=== PATIENT | male | born 1965 | race Caucasian/White ===

== ENCOUNTER 2017-12-07 20:17 | Emergency (ER) | payer OTHER ==
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
== END 2017-12-07 21:28 | disposition home or self-care (01) ==
LOC: ER 20:17
DX: Z13.9 Encounter for screening, unspecified (principal); V49.59XA Passenger injured in collision with other motor vehicles in traffic accident, initial encounter; F20.9 Schizophrenia, unspecified; Z88.8 Allergy status to other drugs, medicaments and biological substances; Z91.09 Other allergy status, other than to drugs and biological substances
CPT/HCPCS: 99281

== ENCOUNTER 2018-08-04 11:56 | Emergency (ER) | payer OTHER ==
[2018-08-04] MEDS ORDERED: ONDANSETRON 4 MG/2 ML VIAL ONE (12:24)
[2018-08-04 12:33] LABS: Absolute Monocytes 0.5 K/uL (0.1-1.3); Absolute Neutrophil 3.3 K/uL (1.8-8.0); Basophils % 0.9 % (0-1.3); Eosinophils % 1.7 % (0-4.4); Hematocrit 41.9 % (39.6-49.0); Lymphocytes % 20.7 % (15.3-44.8); Monocytes % 9.3 % (3.3-12.3); RBC Red Blood Cell Count 4.64 M/uL (4.33-5.43)
[2018-08-04 13:12] LABS: Albumin 3.7 g/dL (3.4-5.0); Bilirubin Direct 0.1 mg/dL (0-0.2); Bilirubin Total 0.4 mg/dL (0.2-1.0); Potassium 4.1 mmol/L (3.5-5.1); Protein, Total 6.8 g/dL (6.4-8.2)
--- NOTE | 2018-08-04 15:32 | RAD REPORT ---
EXAM DESCRIPTION: CT - Abdomen Pelvis W Contrast - 08/04/2018 3:15 pm CLINICAL HISTORY: Abdominal pain. Constipation COMPARISON: 2013 TECHNIQUE: Computed axial tomography of the abdomen and pelvis was obtained. 100 cc Isovue-300 is ad ministered intravenously. Oral contrast was given. All CT scans are performed using dose optimization technique as appropriate and may include automated exposure control or mA/KV adjustment according to patient size. FINDINGS: The liver, spleen, pancreas, and adrenals appear unremarkable. A horseshoe kidney is present The rectum is distended with stool measuring 8.6 centimeters. A moderate amount of stool is present t hroughout the colon. There is no evidence of diverticulitis IMPRESSION: Moderate amount stool within the colon. Rectal distention with stool
[2018-08-04] MEDS ORDERED: FLEET ENEMA ADULT PR ONE (15:56)
--- NOTE | 2018-08-04 17:47 | ER ---
Nurse's Notes [facility] Name: Demar Faith Age: 53 yrs Sex: Male : 1965 Arrival Date: 08/04/2018 Time: 11:59 Bed 3 Private MD: Diagnosis: Constipation, unspecified;Fecal impaction Presentation: 08/04 12:00 Presenting complaint: EMS states: [employer] Molder reports he has been constipated for a few hb days and today he vomited x 1 what appeared to be stool. Denies pain. Afebrile, VSS, BGL 103. Transition of care: patient was not received from another setting of care. Onset of symptoms was August 04, 2018. Risk Assessment: Do you want to hurt yourself or someone else? Patient reports no desire to harm self or others. Care prior to arrival: IV initiated. 20 GA, in the left antecubital area. 12:00 Method Of Arrival: EMS: [facility] hb 12:00 Acuity: BRENT 3 hb 12:15 Initial Sepsis Screen: Does the patient meet any 2 criteria? No. Patient's initial hb sepsis screen is negative. Does the patient have a suspected source of infection? No. Patient's initial sepsis screen is negative. Historical: - Allergies: 12:04 Klonopin; hb 12:04 Loxitane; hb 12:04 Mellaril; hb 12:04 NAVANE; hb 12:04 POISION MARCELLO; hb - Home Meds: 12:04 amlodipine oral [Active]; bisacodyl 5 mg Oral TbEC once daily [Active]; metoprolol hb tartrate 25 mg Oral tab 1 tab once daily [Active]; Nizoral Topical [Active]; Seroquel 100 mg oral tab nightly [Active]; Wellbutrin 300 mg oral tab nightly [Active]; Xarelto 20 mg Oral tab 1 tab once daily [Active]; benztropine 1 mg Oral tab 1 tab 2 times per day [Active]; - PMHx: 12:04 Depression; HYPERHYROSIS; HYPERTHYROID; Schizophrenia; IDD; hb - Immunization history:: Adult Immunizations up to date. - Social history:: Smoking status: Patient/guardian denies using tobacco. - Ebola Screening: : No symptoms or risks identified at this time. - Family history:: not pertinent. - Hospitalizations: : No recent hospitalization is reported. Screenin:05 Abuse screen: Denies threats or abuse. Denies injuries from another. Nutritional hb screening: No deficits noted. Tuberculosis screening: No symptoms or risk factors identified. Fall Risk Total May Fall Scale indicates Low Risk Score (25-44 pts). Fall prevention measures have been instituted. Side Rails Up X 2 Frequent Obs/Assesments occuring Family Present and informed to notify staff if they need to leave bedside As available Patient and Family Educated on Fall Prevention Program and strategies. Assessment: 12:05 General: Appears in no apparent distress. Behavior is calm, cooperative. Pain: Denies hb pain. Neuro: Level of Consciousness is awake, alert, obeys commands, Oriented to person, place, situation. Cardiovascular: Capillary refill < 3 seconds Patient's skin is warm and dry. Respiratory: Airway is patent Respiratory effort is even, unlabored, Respiratory pattern is regular, symmetrical, Breath sounds are clear bilaterally. GI: Abdomen is non-distended, Bowel sounds present X 4 quads. Abd is soft and non tender X 4 quads. Patient currently denies pain. : No signs and/or symptoms were reported regarding the genitourinary system. EENT: No signs and/or symptoms were reported regarding the EENT system. Derm: Skin is intact, is healthy with good turgor. Musculoskeletal: No signs and/or symptoms reported regarding the musculoskeletal system. 13:00 Reassessment: Patient appears in no apparent distress at this time. No changes from hb previously documented assessment. Patient and/or family updated on plan of care and expected duration. Pain level reassessed. 14:00 Reassessment: Patient appears in no apparent distress at this time. No changes from hb previously documented assessment. Patient and/or family updated on plan of care and expected duration. Pain level reassessed. 15:00 Reassessment: Patient appears in no apparent distress at this time. No changes from hb previously documented assessment. Patient and/or family updated on plan of care and expected duration. Pain level reassessed. 15:48 Reassessment: Spoke with caregiver, pt normally has difficulty going to bathroom on hb command, defecates on the floor most days, recommends holding enema until other daycare teacher arrives to assist. Dr. Segundo notified. 16:00 Reassessment: Patient appears in no apparent distress at this time. No changes from previously documented assessment. Patient and/or family updated on plan of care and expected duration. Pain level reassessed. 17:00 Reassessment: Patient appears in no apparent distress at this time. No changes from previously documented assessment. Patient and/or family updated on plan of care and expected duration. Pain level reassessed. 17:35 Reassessment: Pt had large soft BM. Pt cleaned of incontinence and redressed in clean hospital gown and socks. Room cleaned. Dr. Segundo notified, Discharge pending. [employer] M[employer] at bedside. Vital Signs: 11:59 BP 110 / 89; Pulse 81; Resp 16; Temp 98; Pulse Ox 99% on R/A; Pain 0/10; hb 13:00 BP 105 / 76; Pulse 78; Resp 16; Pulse Ox 99% on R/A; Pain 0/10; hb 14:00 BP 119 / 86; Pulse 84; Resp 15; Pulse Ox 100% on R/A; hb 15:00 BP 118 / 83; Pulse 87; Resp 16; Pulse Ox 99% on R/A; hb 16:00 BP 119 / 86; Pulse 83; Resp 16; Pulse Ox 98% on R/A; hb ED Course: 11:59 Patient arrived in ED. hb 12:01 Triage completed. hb 12:02 Sameer Segundo MD is Attending Physician. rn 12:05 Arm band placed on. hb 12:05 Patient has correct armband on for positive identification. Bed in low position. Call hb light in reach. Side rails up X2. 12:09 Rocío Fritz, RN is Primary Nurse. hb 12:20 Maintain EMS IV. Dressing intact. Good blood return noted. Site clean \T\ dry. Gauge \T\ hb site: 20g RIGHT AC. 15:11 CT Abd/Pelvis - W/Contrast In Process Unspecified. EDMS 18:03 No provider procedures requiring assistance completed. IV discontinued, intact, hb bleeding controlled, No redness/swelling at site. Pressure dressing applied. Administered Medications: 12:22 Drug: Zofran 4 mg Route: IVP; Site: right antecubital; hb 15:36 Follow up: Response: No adverse reaction 12:22 Drug: NS 0.9% 1000 ml Route: IV; Rate: 1000 ml; Site: right antecubital; hb 13:22 Follow up: Response: No adverse reaction; IV Status: Completed infusion hb 16:55 Drug: Fleet Enema 133 ml Route: SC; hb 18:30 Follow up: Response: No adverse reaction hb Outcome: 17:46 Discharge ordered by . rn 18:03 Discharged to home ambulatory, cryptologic supervisor hb 18:03 Condition: stable 18:03 Discharge instructions given to patient, cryptologic supervisor, Instructed on discharge instructions, follow up and referral plans. Demonstrated understanding of instructions, follow-up care. 18:04 Patient left the ED. hb Signatures: Dispatcher [employer] EDMS Sameer Segundo MD MD rn Joaquin, Henry, RN RN hj Baxter, Heather, RN RN hb Corrections: (The following items were deleted from the chart) 16:38 12:05 Neuro: Level of Consciousness is awake, alert, obeys commands, Oriented to hb person, place, time, situation, hb 16:38 13:00 Reassessment: Patient appears in no apparent distress at this time. No changes hb from previously documented assessment. Patient and/or family updated on plan of care and expected duration. Pain level reassessed. Patient is alert, oriented x 3, equal unlabored respirations, skin warm/dry/pink. hb 16:38 14:00 Reassessment: Patient appears in no apparent distress at this time. No changes hb from previously documented assessment. Patient and/or family updated on plan of care and expected duration. Pain level reassessed. Patient is alert, oriented x 3, equal unlabored respirations, skin warm/dry/pink. hb
--- NOTE | 2018-08-04 17:47 | EDPHYS ---
Physician Documentation [facility] Name: Demar Faith Age: 53 yrs Sex: Male : 1965 Arrival Date: 08/04/2018 Time: 11:59 Bed 3 Private MD: ED Physician Sameer Segundo HPI: 08/04 12:46 This 53 yrs old Male presents to ER via EMS with complaints of Vomiting. rn 12:46 The patient presents to the emergency department with nausea, vomiting, abdominal pain. rn Onset: The symptoms/episode began/occurred this morning. Possible causes: unknown. Severity of symptoms: At their worst the symptoms were mild in the emergency department the symptoms are unchanged. The patient has experienced similar episodes in the past. Per report, + chronic constipation, concern for bring him in today is that he may be blocked and is vomiting, no blood, take stool softener at home. Pt denies abd pain currently. . Historical: - Allergies: 12:04 Klonopin; hb 12:04 Loxitane; hb 12:04 Mellaril; hb 12:04 NAVANE; hb 12:04 POISION MARCELLO; hb - Home Meds: 12:04 amlodipine oral [Active]; bisacodyl 5 mg Oral TbEC once daily [Active]; metoprolol hb tartrate 25 mg Oral tab 1 tab once daily [Active]; Nizoral Topical [Active]; Seroquel 100 mg oral tab nightly [Active]; Wellbutrin 300 mg oral tab nightly [Active]; Xarelto 20 mg Oral tab 1 tab once daily [Active]; benztropine 1 mg Oral tab 1 tab 2 times per day [Active]; - PMHx: 12:04 Depression; HYPERHYROSIS; HYPERTHYROID; Schizophrenia; IDD; hb - Immunization history:: Adult Immunizations up to date. - Social history:: Smoking status: Patient/guardian denies using tobacco. - Ebola Screening: : No symptoms or risks identified at this time. - Family history:: not pertinent. - Hospitalizations: : No recent hospitalization is reported. ROS: 12:46 Constitutional: Negative for fever, chills, and weight loss, Eyes: Negative for injury, rn pain, redness, and discharge, Cardiovascular: Negative for chest pain, palpitations, and edema, Respiratory: Negative for shortness of breath, cough, wheezing, and pleuritic chest pain, Abdomen/GI: Negative for abdominal pain, + nausea/vomiting MS/Extremity: Negative for injury and deformity, Skin: Negative for injury, rash, and discoloration, Neuro: Negative for headache, weakness, numbness, tingling, and seizure. Exam: 12:46 Constitutional: This is a well developed, well nourished patient who is awake, alert, rn and in no acute distress. Head/Face: Normocephalic, atraumatic. Eyes: Pupils equal round and reactive to light, extra-ocular motions intact. Lids and lashes normal. Conjunctiva and sclera are non-icteric and not injected. Cornea within normal limits. Periorbital areas with no swelling, redness, or edema. ENT: dry MM Cardiovascular: Regular rate and rhythm with a normal S1 and S2. No pulse deficits. Respiratory: Lungs have equal breath sounds bilaterally, clear to auscultation and percussion. No rales, rhonchi or wheezes noted. No increased work of breathing, no retractions or nasal flaring. Abdomen/GI: Soft, non-tender. No distension or tympany. No guarding or rebound. No evidence of tenderness throughout. MS/ Extremity: Pulses equal, no cyanosis. Neurovascular intact. Full, normal range of motion. Equal circumference. Neuro: Awake and alert, GCS 15, Cranial nerves II-XII grossly intact. Motor strength 5/5 in all extremities. Sensory grossly intact. Vital Signs: 11:59 BP 110 / 89; Pulse 81; Resp 16; Temp 98; Pulse Ox 99% on R/A; Pain 0/10; hb 13:00 BP 105 / 76; Pulse 78; Resp 16; Pulse Ox 99% on R/A; Pain 0/10; hb 14:00 BP 119 / 86; Pulse 84; Resp 15; Pulse Ox 100% on R/A; hb 15:00 BP 118 / 83; Pulse 87; Resp 16; Pulse Ox 99% on R/A; hb 16:00 BP 119 / 86; Pulse 83; Resp 16; Pulse Ox 98% on R/A; hb MDM: 12:02 Patient medically screened. rn 17:00 Differential diagnosis: Nonspecific abd pain, constipation, fecal impaction, rn dehydration. Data reviewed: vital signs, nurses notes. 17:44 Counseling: I had a detailed discussion with the patient and/or guardian regarding: the rn historical points, exam findings, and any diagnostic results supporting the discharge/admit diagnosis, lab results, radiology results, the need for outpatient follow up, to return to the emergency department if symptoms worsen or persist or if there are any questions or concerns that arise at home. Special discussion: I discussed with the patient/guardian in detail that at this point there is no indication for admission to the hospital. It is understood, however, that if the symptoms persist or worsen the patient needs to return immediately for re-evaluation. ED course: Large bowel movement here, feels better, good response to enema, will dc home. . 08/04 12:07 Order name: Basic Metabolic Panel; Complete Time: 13:23 rn 08/04 12:07 Order name: CBC with Diff; Complete Time: 13:23 rn 08/04 12:07 Order name: Hepatic Function; Complete Time: 13:23 rn 08/04 12:07 Order name: Lipase; Complete Time: 13:23 rn 08/04 12:07 Order name: CT Abd/Pelvis - W/Contrast; Complete Time: 15:34 rn 08/04 12:07 Order name: IV Saline Lock; Complete Time: 12:10 rn 08/04 12:07 Order name: Labs collected and sent; Complete Time: 12:29 rn Administered Medications: 12:22 Drug: Zofran 4 mg Route: IVP; Site: right antecubital; hb 15:36 Follow up: Response: No adverse reaction hj 12:22 Drug: NS 0.9% 1000 ml Route: IV; Rate: 1000 ml; Site: right antecubital; hb 13:22 Follow up: Response: No adverse reaction; IV Status: Completed infusion hb 16:55 Drug: Fleet Enema 133 ml Route: PA; hb 18:30 Follow up: Response: No adverse reaction hb Disposition: 08/04/18 17:46 Discharged to Home. Impression: Constipation, unspecified, Fecal impaction. - Condition is Stable. - Discharge Instructions: Constipation, Adult, Fecal Impaction. - Medication Reconciliation Form, Thank You Letter, Antibiotic Education, Prescription Opioid Use form. - Follow up: Private Physician; When: As needed; Reason: Recheck today's complaints, Re-evaluation by your physician. - Problem is new. - Symptoms have improved. Signatures: Dispatcher [employer] EDSameer Ramirez MD MD rn Baxter, Heather, RN RN hb Joaquin, Henry RN Corrections: (The following items were deleted from the chart) 18:04 17:46 08/04/2018 17:46 Discharged to Home. Impression: Constipation, unspecified; Fecal hb impaction. Condition is Stable. Forms are Medication Reconciliation Form, Thank You Letter, Antibiotic Education, Prescription Opioid Use. Follow up: Private Physician; When: As needed; Reason: Recheck today's complaints, Re-evaluation by your physician. Problem is new. Symptoms have improved. rn
== END 2018-08-04 18:04 | disposition home or self-care (01) ==
LOC: ER 11:56
DX: K56.41 Fecal impaction (principal); E11.9 Type 2 diabetes mellitus without complications; F32.9 Major depressive disorder, single episode, unspecified; F20.9 Schizophrenia, unspecified; Z79.01 Long term (current) use of anticoagulants; Z88.8 Allergy status to other drugs, medicaments and biological substances; Z91.048 Other nonmedicinal substance allergy status
CPT/HCPCS: 36415; 74177; 80048; 80076; 83690; 85025; 96361; 96374; 99284; J2405; Q9967

== ENCOUNTER 2020-07-22 10:33 | Emergency (ER) | payer OTHER ==
--- OUTSIDE RECORDS SUMMARY | 2020-07-22 10:36 | XMS REPORT | Continuity of Care Document ---
:1965 Author Organization [facility] t Address [address] [place] [address] Care Team Providers Name Role Phone Pob, Lab Main Attending Clinician Unavailable Problems This patient has no known problems. Allergies, Adverse Reactions, Alerts This patient has no known allergies or adverse reactions. Medications This patient has no known medications. Procedures This patient has no known procedures. Encounters Start End Encounter Admission Attending Care Care Encounter Source Date/Time Date/Time Type Type Clinicians Facility Department ID 2020-07-20 2020-07-20 Senior Contracts Administrator Carlos Gilliam NETING [id number] 08:16:55 08:31:55 Visit Lab Main Fabricio [id number] Ankush [id number] [place] [id number] [facility] [address] Results This patient has no known results.
[2020-07-22 11:37] LABS: ALT/SGPT 93 U/L (12-78); AST/SGOT 24 U/L (15-37); Albumin 2.5 g/dL (3.4-5.0); Alkaline Phosphatase 60 U/L (45-117); BUN Blood Urea Nitrogen 32 mg/dL (7-18); Bicarbonate 28 mmol/L (21-32); Bilirubin Total 0.7 mg/dL (0.2-1.0); Glucose Level 139 mg/dL (74-106); Potassium 4.8 mmol/L (3.5-5.1); Protein, Total 5.2 g/dL (6.4-8.2); Sodium Level 143 mmol/L (136-145)
[2020-07-22 11:40] LABS: Absolute Lymphocytes (CBC) 0.2 K/uL (0.7-4.9); Basophils % 0.1 % (0-1.3); Hematocrit 31.2 % (39.6-49.0); Lymphocytes % 5.4 % (15.3-44.8); MPV 9.4 fL (7.6-11.3)
[2020-07-22 12:27] LABS: Urine Bacteria <20 /HPF (NONE SEEN); Urine RBC <5 /HPF (NONE SEEN)
[2020-07-22 12:28] LABS: Urine Mucus 2+ /HPF (NONE SEEN)
[2020-07-22 12:45] LABS: Blood Morphology Comment NOT SEEN (NOT SEEN); Platelet Estimate ADEQ; Platelets, Giant P; White Blood Cell Scan OK (OK)
--- NOTE | 2020-07-22 12:59 | ER ---
Nurse's Notes [facility] Name: Demar Faith Age: 55 yrs Sex: Male : 1965 Arrival Date: 07/22/2020 Time: 10:34 Bed 7 Private MD: Diagnosis: Dysuria Presentation: 07/22 10:35 Chief complaint: EMS states: Adult day care staff called EMS for abdominal pain, AOx2 hb at baseline, SBP 80s, improved to 110s after NS 500 ml to 20g LAC. Coronavirus screen: At this time, the client does not indicate any symptoms associated with coronavirus-19. Ebola Screen: No symptoms or risks identified at this time. Initial Sepsis Screen: Does the patient meet any 2 criteria? HR > 90 bpm. No. Patient's initial sepsis screen is negative. Does the patient have a suspected source of infection? No. Patient's initial sepsis screen is negative. Risk Assessment: Do you want to hurt yourself or someone else? Patient reports no desire to harm self or others. Onset of symptoms was July 22, 2020. 10:35 Method Of Arrival: EMS: [facility] hb 10:35 Acuity: BRENT 3 hb Historical: - Allergies: 10:41 Klonopin; hb 10:41 Loxitane; hb 10:41 Mellaril; hb 10:41 NAVANE; hb 10:41 POISION MARCELLO; hb - Home Meds: 10:41 amlodipine oral [Active]; benztropine 1 mg Oral tab 1 tab 2 times per day [Active]; hb bisacodyl 5 mg Oral TbEC once daily [Active]; metoprolol tartrate 25 mg Oral tab 1 tab once daily [Active]; Nizoral Topical [Active]; Seroquel 100 mg Oral tab nightly [Active]; Wellbutrin 300 mg Oral tab nightly [Active]; Xarelto 20 mg Oral tab 1 tab once daily [Active]; - PMHx: 10:41 Depression; HYPERHYROSIS; HYPERTHYROID; IDD; Schizophrenia; hb - Immunization history:: Adult Immunizations up to date, COVID vaccine x 2. - Social history:: Smoking status: Patient denies any tobacco usage or history of. Screenin:00 Abuse screen: Denies threats or abuse. Denies injuries from another. Nutritional ss screening: No deficits noted. Tuberculosis screening: Never had TB. Fall Risk No fall in past 12 months (0 pts). Secondary diagnosis (15 points) A\\T\\O x 2. IV access (20 points). Ambulatory Aid- None/Bed Rest/Nurse Assist (0 pts). Gait- Normal/Bed Rest/Wheelchair (0 pts) Mental Status- Overestimates/Forgets Limitations (15 pts.). Assessment: 11:00 General: Appears in no apparent distress. comfortable, slender, cachectic, Behavior is calm, cooperative. Pain: Denies pain. Neuro: Level of Consciousness is awake, alert, obeys commands, Oriented to person, place. Respiratory: Airway is patent Respiratory effort is even, unlabored. GI: Bowel sounds present X 4 quads. Abd is soft X 4 quads Patient currently denies nausea. EENT: Oral mucosa is moist. Derm: Skin is pink, warm \\T\\ dry. normal. 12:00 Reassessment: Patient appears in no apparent distress at this time. No changes from previously documented assessment. 13:00 Reassessment: Called Report to "Pelon" caregiver. Will arrange for transportation back home. Awaiting ETA. Pt states he is ready to go . Has no complaints at this time. 14:25 Reassessment: Pt is anxiously awaiting his ride home. Spoke with Pelon who states Aicha will jeannine here shortly. Vital Signs: 10:35 BP 106 / 79; Pulse 111; Resp 16; Temp 97; Pulse Ox 95% on R/A; Pain 5/10; hb ED Course: 10:34 Patient arrived in ED. hb 10:38 Triage completed. hb 10:41 Arm band placed on. hb 10:43 Antonio Cortez PA is PHCP. jr8 10:43 Aaron Ricks MD is Attending Physician. jr8 10:56 Bhavana Barrera RN is Primary Nurse. ss 11:00 Patient has correct armband on for positive identification. Bed in low position. Call light in reach. Side rails up X2. Pulse ox on. NIBP on. 11:00 Maintain EMS IV. Dressing intact. Good blood return noted. Site clean \\T\\ dry. Gauge \\T\\ ss site: 20 gauge in L AC. 14:50 No provider procedures requiring assistance completed. IV discontinued, intact, ss bleeding controlled, No redness/swelling at site. Pressure dressing applied. Administered Medications: No medications were administered Outcome: 12:59 Discharge ordered by MD. de la cruz 14:50 Discharged to home caregiver 14:50 Condition: good 14:50 Discharge instructions given to patient, [facility], Instructed on discharge instructions, follow up and referral plans. Demonstrated understanding of instructions, follow-up care. 14:50 Patient left the ED. Signatures: Bhavana Barrera RN RN Antonio Cortez PA PA jr8 Rocío Fritz, AMY RN hb
--- NOTE | 2020-07-22 13:00 | EDPHYS ---
Physician Documentation [facility] Name: Demar Faith Age: 55 yrs Sex: Male : 1965 Arrival Date: 07/22/2020 Time: 10:34 Bed 7 Private MD: ED Physician Aaron Ricks HPI: 07/22 10:55 This 55 yrs old Male presents to ER via EMS with complaints of Abdominal Pain.jr8 10:55 Onset: The symptoms/episode began/occurred at an unknown time. Unable to obtain HPI due jr8 to patient's inability to understand questions, Intellectually challenged. . Patient is intellectually challenged. He communicates short yes/no responses to closed ended questions. Interview showed positive CISSE pain, penile pain, and pain with urination. . Historical: - Allergies: 10:41 Klonopin; hb 10:41 Loxitane; hb 10:41 Mellaril; hb 10:41 NAVANE; hb 10:41 POISION MARCELLO; hb - Home Meds: 10:41 amlodipine oral [Active]; benztropine 1 mg Oral tab 1 tab 2 times per day [Active]; hb bisacodyl 5 mg Oral TbEC once daily [Active]; metoprolol tartrate 25 mg Oral tab 1 tab once daily [Active]; Nizoral Topical [Active]; Seroquel 100 mg Oral tab nightly [Active]; Wellbutrin 300 mg Oral tab nightly [Active]; Xarelto 20 mg Oral tab 1 tab once daily [Active]; - PMHx: 10:41 Depression; HYPERHYROSIS; HYPERTHYROID; IDD; Schizophrenia; hb - Immunization history:: Adult Immunizations up to date, COVID vaccine x 2. - Social history:: Smoking status: Patient denies any tobacco usage or history of. ROS: 10:57 Cardiovascular: Negative for chest pain, palpitations, and edema, Abdomen/GI: Negative jr8 for abdominal pain, nausea, vomiting, diarrhea, and constipation. 10:57 Constitutional: Positive for 10:57 : Positive for burning with urination. 10:57 Neuro: Positive for headache. 11:54 All other systems are negative. jr8 Exam: 10:58 Cardiovascular: Regular rate and rhythm with a normal S1 and S2. No gallops, murmurs, jr8 or rubs. Normal PMI, no JVD. No pulse deficits. Respiratory: Lungs have equal breath sounds bilaterally, clear to auscultation and percussion. No rales, rhonchi or wheezes noted. No increased work of breathing, no retractions or nasal flaring. Abdomen/GI: Soft, non-tender, with normal bowel sounds. No distension or tympany. No guarding or rebound. No evidence of tenderness throughout. 10:58 Constitutional: The patient appears alert, awake, emaciated, pale. 10:58 Skin: Appearance: Pale , Turgor: tenting is noted. 10:58 Neuro: Orientation: unable to test, Mentation: slow to respond. 11:54 Back: No spinal tenderness. No costovertebral tenderness. Full range of motion. MS/ jr8 Extremity: Pulses equal, no cyanosis. Neurovascular intact. Full, normal range of motion. Vital Signs: 10:35 BP 106 / 79; Pulse 111; Resp 16; Temp 97; Pulse Ox 95% on R/A; Pain 5/10; hb MDM: 10:43 Patient medically screened. jr8 11:00 Data reviewed: vital signs, lab test result(s). Data interpreted: associate [employer]: rate jr8 is 111 beats/min, rhythm is Pulse oximetry: on room air is 95 %. Interpretation: normal. 12:58 Counseling: I had a detailed discussion with the patient and/or guardian regarding: the jr8 historical points, exam findings, and any diagnostic results supporting the discharge/admit diagnosis, lab results, radiology results, the need for outpatient follow up, a family practitioner, to return to the emergency department if symptoms worsen or persist or if there are any questions or concerns that arise at home. ED course: VS stable. Still without grimace or signs of pain on physical exam. Labs stable. No UTI. No external genitalia findings suggestive of infection or inflammation. Will d/c home to f/u with PCP. 07/22 10:54 Order name: CBC with Diff; Complete Time: 12:54 jr8 07/22 10:54 Order name: Urine Microscopic Only; Complete Time: 12:32 jr8 07/22 10:54 Order name: Urine Dipstick-Ancillary (obtain specimen); Complete Time: 11:15 jr8 07/22 10:54 Order name: CMP; Complete Time: 11:38 jr8 07/22 11:16 Order name: Urine Dipstick--Ancillary (enter results); Complete Time: 13:03 em1 07/22 12:01 Order name: CBC Smear Scan; Complete Time: 12:54 EDMS Administered Medications: No medications were administered Disposition: 22:17 Co-signature as Attending Physician, Aaron Ricks MD I agree with the assessment and kdr plan of care. Disposition: 07/22/20 12:59 Discharged to Home. Impression: Dysuria. - Condition is Stable. - Discharge Instructions: Dysuria. - Medication Reconciliation Form, Thank You Letter, Antibiotic Education, Prescription Opioid Use form. - Follow up: Private Physician; When: 2 - 3 days; Reason: Recheck today's complaints, Continuance of care, Re-evaluation by your physician. - Problem is new. - Symptoms have improved. Signatures: Dispatcher [employer] EDMI Aaron Ricks MD MD [facility] Bhavana Barrera RN RN Antonio Cortez PA PA jr8 Rocío Fritz RN RN Corrections: (The following items were deleted from the chart) 14:50 12:59 07/22/2020 12:59 Discharged to Home. Impression: Dysuria. Condition is Stable. ss Forms are Medication Reconciliation Form, Thank You Letter, Antibiotic Education, Prescription Opioid Use. Follow up: Private Physician; When: 2 - 3 days; Reason: Recheck today's complaints, Continuance of care, Re-evaluation by your physician. Problem is new. Symptoms have improved. jr8
[2020-07-22 13:03] LABS: Urine Blood NEGATIVE (NEG); Urine Glucose 2+ (NEG); Urine Protein 1+ (NEG); Urine Specific Gravity >1.030 (1.005-1.030); Urine pH 5.5 (5.0-7.0)
[2020-07-22 15:15] VITALS: BP 106/79; TEMP 97; O2SAT 95
== END 2020-07-22 14:50 | disposition home or self-care (01) ==
LOC: ER 10:33
DX: R30.0 Dysuria (principal); F20.9 Schizophrenia, unspecified; E05.90 Thyrotoxicosis, unspecified without thyrotoxic crisis or storm
CPT/HCPCS: 36415; 80053; 81003; 81015; 85025; 99283